=== PATIENT | male | born 1970 | race Caucasian/White ===

== ENCOUNTER → 2017-06-18 | Outpatient (CLI) | payer BC ==
--- NOTE | 2017-06-18 13:51 | CT ---
EXAMINATION TYPE: CT abdomen pelvis w con DATE OF EXAM: 06/18/2017 COMPARISON: NONE HISTORY: Mid Abdominal pain CT DLP: 1473 mGycm Automated exposure control for dose reduction was used. CONTRAST: CT scan of the abdomen pelvis is performed with IV Contrast, patient injected with 100 mL of Omnipaqu e 300. FINDINGS- LUNG BASES- No significant abnormality is appreciated. LIVER/EB-[id number] liver is compatible with fatty infiltration. No gallstones. PANCREAS- No gross abnormality is seen. SPLEEN- No gross abnormality is seen. ADRENALS- No gross abnormality is seen. KIDNEYS/BLADDER- no hydronephrosis or nephrolithiasis. Indeterminate renal lesion on the left measuri ng less than a centimeter. BOWEL- no bowel dilatation. Bowel gas pattern nonspecific. Diverticulosis of colon noted. No CT evid ence of diverticulitis. LYMPH NODES- No greater than 1cm abdominal or pelvic lymph nodes are appreciated. OSSEOUS STRUCTURES-hypertrophic change involving the L4 segment may been the basis of congenital defo rmity.. OTHER- hiatal hernia with peritoneal also noted . Prostate gland is enlarged. There are bilateral fa t-containing inguinal hernias. IMPRESSION- 1. Fatty infiltration of liver 2. Indeterminate left renal lesion too small to characterize. 3. There is a hiatal hernia which also contains peritoneal fat. 4. The prostate is enlarged.
== END | disposition home or self-care (01) ==
LOC: RADCTMAIN 11:12
PROVIDERS: ATTEND Family Medicine
DX: K76.0 Fatty (change of) liver, not elsewhere classified (principal); N40.0 Benign prostatic hyperplasia without lower urinary tract symptoms; N28.89 Other specified disorders of kidney and ureter; K44.9 Diaphragmatic hernia without obstruction or gangrene
CPT/HCPCS: 74177; Q9967

== ENCOUNTER 2017-06-23 10:49 | Day surgery (SDC) | payer BC, OTHER ==
[2017-06-18 16:15] VITALS: BMI 35.2
[~2017-06-23 10:49] MED LIST: LACTATED RINGERS 1,000 ML IV ONE; LIDOCAINE 1% 20 ML VIAL (10MG/ML) FOR IV START INTRADERMA PRN
[2017-06-23 11:16] VITALS: TEMP 97.5
[2017-06-23] MEDS ORDERED: PROPOFOL 10 MG/ML 20 ML VIAL IV ONE (13:18)
--- NOTE | 2017-06-23 13:20 | P.GSHP ---
History of Present Illness H&P Date: 06/23/17 Chief Complaint: GI bleed, history of diverticulitis This is a 47-year-old male referred from karen Mar. [facility]. He's had complaints of rectal bleeding. His had a previous colonoscopy approximately 3 years ago which sounds found have diverticulosis. Past Medical History Past Medical History: GERD/Reflux, Osteoarthritis (OA) History of Any Multi-Drug Resistant Organisms: None Reported Past Surgical History: Hernia Repair, Tonsillectomy Additional Past Surgical History / Comment(s): FATTY TUMOR REMOVED FROM CHEST AREA, COLONOSCOPY Past Anesthesia/Blood Transfusion Reactions: No Reported Reaction Smoking Status: Never smoker - Past Family History Mother Family Medical History: No Reported History Medications and Allergies Home Medications Medication Instructions Recorded Confirmed Type No Known Home Medications [No 06/18/17 06/23/17 History Known Home Medications] Allergies Allergy/AdvReac Type Severity Reaction Status Date / Time No Known Allergies Allergy Verified 06/23/17 11:36 Surgical - Exam Vital Signs Temp Pulse BP Pulse Ox 97.5 F L 66 133/91 96 06/23/17 11:15 06/23/17 11:15 06/23/17 11:15 06/23/17 11:15 - General well developed, no distress - Eyes PERRL - ENT normal pinna - Neck no masses - Respiratory normal expansion - Cardiovascular Rhythm: regular - Abdomen Abdomen: soft, non tender Assessment and Plan Assessment: GI Bleed. We'll perform colonoscopy.
--- NOTE | 2017-06-23 13:29 | P.OP ---
Date of Procedure: 06/23/17 Preoperative Diagnosis: GI bleed Postoperative Diagnosis: Diverticulosis Procedure(s) Performed: Colonoscopy Anesthesia: MAC Surgeon: Santiago Garcia Pathology: none sent Condition: stable Disposition: PACU Description of Procedure: Patient's placed on the endoscopy table in the lateral position. He received IV sedation. Digital rectal exam was performed which revealed no other abnormalities. Flexible colonoscope was then placed patient anus passed throughout the entire colon. The ileocecal valve was visualized. Cecum, ascending colon appeared normal. In the transverse descending; there is extensive diverticular changes. Scope was then brought back the rectum and this appeared normal. Scope was withdrawn for patient.
[2017-06-23 13:58] VITALS: BP 122/82; PULSE 79; RESP 18
== END 2017-06-23 14:08 | disposition home or self-care (01) ==
LOC: ORWHC2ENDO 10:49
PROVIDERS: ATTEND Surgery
DX: K57.30 Diverticulosis of large intestine without perforation or abscess without bleeding (principal); K21.9 Gastro-esophageal reflux disease without esophagitis
CPT/HCPCS: 45378; J2704

== ENCOUNTER 2017-07-19 06:51 | Day surgery (SDC) | payer BC ==
[2017-07-16 11:35] VITALS: BMI 36.2
[2017-07-19 07:05] VITALS: RESP 16; TEMP 97.6
[2017-07-19] MEDS ORDERED: IV FLUID CONTINUATION 1,000 ML IV ONE (07:11)
[2017-07-19] MEDS ORDERED: PROPOFOL 10 MG/ML 20 ML VIAL IV ONE (07:40)
[2017-07-19] MEDS ORDERED: LIDOCAINE 1% INJ 10MG/ML (20 ML MDV) ONE (07:40)
--- NOTE | 2017-07-19 07:54 | P.GSHP ---
History of Present Illness H&P Date: 07/19/17 Chief Complaint: GERD This a 47-year-old male referred from [facility] Mar PA-C. Patient presents today for EGD. He's had issues with GERD. He's had GERD for several years. Past Medical History Past Medical History: GERD/Reflux, Osteoarthritis (OA) Additional Past Medical History / Comment(s): hiatal hernia,occasional dysphagia , spot on kidney-having test Wednesday07-19-17 History of Any Multi-Drug Resistant Organisms: None Reported Past Surgical History: Hernia Repair, Tonsillectomy Additional Past Surgical History / Comment(s): FATTY TUMOR REMOVED FROM CHEST AREA, COLONOSCOPY Past Anesthesia/Blood Transfusion Reactions: No Reported Reaction Smoking Status: Never smoker - Past Family History Mother Family Medical History: No Reported History Medications and Allergies Home Medications Medication Instructions Recorded Confirmed Type Pantoprazole Sodium [Protonix] 40 mg PO DAILY 07/15/17 07/19/17 History Allergies Allergy/AdvReac Type Severity Reaction Status Date / Time No Known Allergies Allergy Verified 07/16/17 11:29 Surgical - Exam Vital Signs Temp Pulse Resp BP Pulse Ox 97.6 F 77 16 155/91 93 L 07/19/17 07:03 07/19/17 07:03 07/19/17 07:03 07/19/17 07:03 07/19/17 07:03 - General well developed, no distress - Eyes PERRL - ENT normal pinna - Neck no masses - Respiratory normal expansion - Cardiovascular Rhythm: regular - Abdomen Abdomen: soft, non tender Assessment and Plan Assessment: GERD. We'll perform EGD.
--- NOTE | 2017-07-19 07:58 | P.OP ---
Date of Procedure: 07/19/17 Preoperative Diagnosis: GERD Postoperative Diagnosis: Antral gastritis Hiatal hernia Esophagitis Procedure(s) Performed: EGD Anesthesia: MAC Surgeon: Santiago Garcia Pathology: other (Antrum, esophagus) Condition: stable Disposition: PACU Description of Procedure: The patient's placed on the endoscopy table in the lateral position. He received IV sedation. The gastroscope placed oropharynx passed in the esophagus into the stomach. Scope was then placed through the pylorus. The first and second portion duodenum appeared normal. Scope was then brought back the antrum and this was mildly inflamed. A biopsies performed. The scope was retroflexed and remainder of the stomach appeared normal. There was a moderate size hiatal hernia. The the hiatal hernia was sliding. The GE junction was at 38 cm. The distal esophagus was minimal inflamed. A biopsies performed. The proximal esophagus appeared normal.
[2017-07-19 08:24] VITALS: BP 118/78; PULSE 74
== END 2017-07-19 08:41 | disposition home or self-care (01) ==
LOC: ORWHC2ENDO 06:51
PROVIDERS: ATTEND Surgery
DX: K29.50 Unspecified chronic gastritis without bleeding (principal); K21.0 Gastro-esophageal reflux disease with esophagitis; K44.9 Diaphragmatic hernia without obstruction or gangrene; M19.90 Unspecified osteoarthritis, unspecified site; Z79.899 Other long term (current) drug therapy
CPT/HCPCS: 88305; 43239; J2001; J2704

== ENCOUNTER → 2017-07-19 | Outpatient (CLI) | payer BC ==
--- NOTE | 2017-07-20 06:52 | US ---
EXAMINATION TYPE: US kidneys/renal and bladder DATE OF EXAM: 07/19/2017 COMPARISON: CT abdomen and pelvis June 18, 2017 CLINICAL HISTORY: R93.5 RENAL LESION. Left kidney lesion seen on recent CT EXAM MEASUREMENTS: Right Kidney: 11.6 x 5.4 x 6.3 cm Left Kidney: 12.2 x 5.4 x 5.1 cm Right Kidney: 0.6 x 0.4cm echogenic nonshadowing focus inferior pole, limited by rib shadowing and ov erlying bowel gas Left Kidney: 0.8cm echogenic focus mid pole, lesion seen on recent CT not seen on today's exam, limit ed by rib shadowing and overlying bowel gas Bladder: wnl Bilateral Jets seen: yes There is no evidence for hydronephrosis at this point in time. Nonspecific hyperechoic nonshadowing f ocus lower pole level right kidney does not correspond to calculus seen on recent CT. No suspicious solid or cystic masses are identified on images saved. The urinary bladder is anechoic. Bilateral u reteral jets are seen. IMPRESSION: Subcentimeter exophytic low dense lesion on recent CT posteriorly mid pole level left kidney is not c learly identified on this study, because of size it is too small to further characterize but presumed benign.
== END | disposition home or self-care (01) ==
LOC: RADUSWWP 14:47
PROVIDERS: ATTEND Family Medicine
DX: N28.9 Disorder of kidney and ureter, unspecified (principal)
CPT/HCPCS: 76770

== ENCOUNTER 2017-07-27 06:54 | Day surgery (SDC) | payer BC ==
[2017-07-19 10:11] VITALS: BMI 36.2
[~2017-07-27 06:54] MED LIST changes: +DEXAMETHASONE SOD PHOSPHATE 10 MG/ML 1 ML VIAL IV ONE; +HEPARIN SODIUM,PORCINE 5,000 UNIT/ML 1 ML VIAL SQ ONE; +HYDROmorphone 0.5 MG/0.5 ML SYRINGE IVP PRN; -LACTATED RINGERS 1,000 ML IV ONE; -LIDOCAINE 1% 20 ML VIAL (10MG/ML) FOR IV START INTRADERMA PRN; +ONDANSETRON 4 MG/2 ML VIAL IVP ONE; +ceFAZolin IN SWFI 2 GM/20 ML SYRINGE IVP ONE
[2017-07-27] MEDS ORDERED: LIDOCAINE 1% 20 ML VIAL (10MG/ML) FOR IV START INTRADERMA ONE (07:24)
[2017-07-27] MEDS: LACTATED RINGERS 1,000 ML IV SCH ×2 (07:25→07:26)
--- NOTE | 2017-07-27 07:50 | P.GSHP ---
History of Present Illness H&P Date: 07/27/17 Chief Complaint: Bilateral inguinal hernia This is a 47-year-old male referred from that Isabela RICARDO. Patient rents today for laparoscopic robot-assisted repair of bilateral hernias. Patient developed pain in masses in bilateral groins. He seen in the office and found have bilateral inguinal hernias. Past Medical History Past Medical History: GERD/Reflux, Osteoarthritis (OA) Additional Past Medical History / Comment(s): hiatal hernia,occasional dysphagia , spot on kidney-having test Wednesday07-19-17 History of Any Multi-Drug Resistant Organisms: None Reported Past Surgical History: Hernia Repair, Tonsillectomy Additional Past Surgical History / Comment(s): FATTY TUMOR REMOVED FROM CHEST AREA, COLONOSCOPY Past Anesthesia/Blood Transfusion Reactions: No Reported Reaction Smoking Status: Never smoker - Past Family History Mother Family Medical History: No Reported History Medications and Allergies Home Medications Medication Instructions Recorded Confirmed Type Pantoprazole Sodium [Protonix] 40 mg PO DAILY 07/15/17 07/27/17 History Allergies Allergy/AdvReac Type Severity Reaction Status Date / Time No Known Allergies Allergy Verified 07/27/17 07:13 Surgical - Exam Vital Signs Temp Pulse Resp BP Pulse Ox 97.8 F 62 18 136/87 96 07/27/17 07:17 07/27/17 07:17 07/27/17 07:17 07/27/17 07:17 07/27/17 07:17 - General well developed, no distress - Eyes PERRL - ENT normal pinna - Neck no masses - Respiratory normal expansion - Cardiovascular Rhythm: regular - Abdomen Abdomen: soft, non tender Hernia: inguinal (Reducible bilateral inguinal hernia) Assessment and Plan Assessment: Bilateral inguinal hernia. We'll perform laparoscopic robotic-assisted repair.
[2017-07-27] MEDS ORDERED: KETAMINE 10 MG/ML 20 ML VIAL ONE (07:53)
[2017-07-27] MEDS ORDERED: MIDAZOLAM 2 MG/2 ML VIAL ONE (07:53)
[2017-07-27] MEDS ORDERED: LIDOCAINE 1% INJ 10MG/ML (20 ML MDV) ONE (07:53)
[2017-07-27] MEDS ORDERED: ePHEDrine SULFATE/0.9% NACL/PF 50 MG/5 ML SYRINGE IV ONE (07:53)
[2017-07-27] MEDS ORDERED: PROPOFOL 10 MG/ML 20 ML VIAL IV ONE (07:53)
[2017-07-27] MEDS ORDERED: KETOROLAC 30 MG/ML 1 ML VIAL ONE (07:53)
[2017-07-27] MEDS ORDERED: ROCURONIUM BROMIDE 10 MG/ML 10 ML VIAL IV ONE (07:53)
[2017-07-27] MEDS ORDERED: GLYCOPYRROLATE 0.2 MG/ML 2 ML VIAL ONE (07:53)
[2017-07-27] MEDS ORDERED: NEOSTIGMINE 1 MG/ML 10 ML VIAL ONE (07:53)
[2017-07-27] MEDS ORDERED: SUCCINYLCHOLINE CHLORIDE VIAL 200 MG/10 ML VIAL IV ONE (07:53)
[2017-07-27] MEDS ORDERED: fentaNYL (PF) 50 MCG/ML 2 ML AMP ONE (07:53)
[2017-07-27] MEDS ORDERED: BUPIVACAINE (PF) 0.25% 30 ML VIAL SQ ONE (07:57)
[2017-07-27] MEDS ORDERED: ceFAZolin IN SWFI 2 GM/20 ML SYRINGE IVP ONE (08:06)
[2017-07-27 09:27] VITALS: TEMP 97.1
[2017-07-27] MEDS ORDERED: HYDROcodone/APAP 7.5-325MG 1 EACH TAB PO ONE (10:39)
--- NOTE | 2017-07-27 10:55 | P.OP ---
Date of Procedure: 07/27/17 Preoperative Diagnosis: Bilateral inguinal hernia Postoperative Diagnosis: Bilateral inguinal hernia Procedure(s) Performed: Laparoscopic robotic-assisted repair of bilateral inguinal hernia Laparoscopic excision of bilateral cord lipoma Anesthesia: KAE Surgeon: Santiago Garcia Estimated Blood Loss (ml): 5 Pathology: other (Bilateral cord lipoma) Condition: stable Disposition: PACU Description of Procedure: The patient was placed on the operating table in the supine position. The patient received general anesthesia. The patient's abdomen was prepped and draped in usual sterile fashion. The skin was anesthetized 1% local Xylocaine at the incision sites. Using an 11 blade a skin incision was made at the umbilicus. The fascia was grasped with a [place] and then the peritoneal cavity was entered with the Veress needle. Position of the Veress needle was confirmed with a positive drop test. After adequate insufflation a 5 mm trocar was placed into the peritoneal cavity. The Laparoscope was placed the peritoneal cavity. And a robotic 8 mm trocar was placed in the right lateral position and then another 8 mm robotic trochars placed in the left lateral position. The original 5 mm trocar was exchanged for a 12 mm trocar. The patient was placed in reverse Trendelenburg and then the patient was docked to the robot. Next the peritoneum over top of the hernia was incised and then using blunt and sharp dissection and electrocautery the hernia sac was dissected free from the floor of the inguinal canal. A cord lipoma was dissected from the right inguinal cord. The hernia sac was completely reduced into the peritoneal cavity. And then using the Pro annual giving director mesh the hernia was repaired. The peritoneum was then sutured with 2-0V lock suture. Next, the left inguinal hernia was repaired in identical fashion. A cord lipoma was also dissected from the cord. The patient was then undocked the robot. The needle was withdrawn from the peritoneal cavity. The umbilical trocar site was closed with 0 Ethibond suture. The skin was closed interrupted 3-0 Monocryl suture. Dermabond dressing was applied. Patient was sent to recovery in stable condition.
[2017-07-27 11:24] VITALS: BP 138/73; PULSE 58; RESP 18
== END 2017-07-27 11:47 | disposition home or self-care (01) ==
LOC: OR 06:54
PROVIDERS: ATTEND Surgery
DX: K40.20 Bilateral inguinal hernia, without obstruction or gangrene, not specified as recurrent (principal); D17.6 Benign lipomatous neoplasm of spermatic cord; K21.9 Gastro-esophageal reflux disease without esophagitis; E66.9 Obesity, unspecified; Z68.36 Body mass index [BMI] 36.0-36.9, adult; M19.90 Unspecified osteoarthritis, unspecified site; K44.9 Diaphragmatic hernia without obstruction or gangrene; Z79.899 Other long term (current) drug therapy; N28.9 Disorder of kidney and ureter, unspecified
CPT/HCPCS: 49650; S2900; 88304

== ENCOUNTER 2017-08-25 08:30 | Inpatient (IN) | payer BC ==
[2017-08-20 14:33] VITALS: BMI 35.2
[~2017-08-25 08:30] MED LIST changes: -DEXAMETHASONE SOD PHOSPHATE 10 MG/ML 1 ML VIAL IV ONE; -ONDANSETRON 4 MG/2 ML VIAL IVP ONE; +ONDANSETRON 4 MG/2 ML VIAL IVP PRN
[2017-08-25] MEDS ORDERED: LIDOCAINE 1% 20 ML VIAL (10MG/ML) FOR IV START INTRADERMA ONE (13:10)
[2017-08-25] MEDS ORDERED: LACTATED RINGERS 1,000 ML IV ONE ×2 (13:10→18:45)
[2017-08-25] MEDS ORDERED: DEXAMETHASONE SOD PHOS (MDV) 100 MG/10 ML VIAL IVP ONE (13:27)
--- NOTE | 2017-08-25 16:11 | P.GSHP ---
History of Present Illness H&P Date: 08/25/17 Chief Complaint: GERD This a 47-year-old male referred from Dr. Karyna Mendoza. MThe patient has had long-standing problems with reflux esophagitis. The patient underwent recent EGD is found have evidence of esophagitis. Patient has been well informed on the procedure of laparoscopic Mary Ann fundoplication. The patient is aware the risk of the conversion to the open procedure, risk of injury to the stomach, liver and spleen. The patient is also a risk of recurrent GERD and dysphagia symptoms. The patient understands there is a postoperative diet of full liquids for 2 weeks after surgery. Past Medical History Past Medical History: GERD/Reflux, Osteoarthritis (OA) Additional Past Medical History / Comment(s): hiatal hernia,occasional dysphagia History of Any Multi-Drug Resistant Organisms: None Reported Past Surgical History: Hernia Repair, Tonsillectomy Additional Past Surgical History / Comment(s): FATTY TUMOR REMOVED FROM CHEST AREA, COLONOSCOPY, laparoscopic lisa. inguinal hernia repair 2017 Past Anesthesia/Blood Transfusion Reactions: No Reported Reaction Smoking Status: Never smoker - Past Family History Mother Family Medical History: No Reported History Medications and Allergies Home Medications Medication Instructions Recorded Confirmed Type Pantoprazole Sodium [Protonix] 40 mg PO DAILY 07/15/17 08/20/17 History Calcium Carb/Vitamin D3/Vit K1 1 each PO DAILY 08/20/17 08/20/17 History [Citracal Soft Chew] Calcium Polycarbophil [Fibercon] 625 mg PO DAILY 08/20/17 08/20/17 History Allergies Allergy/AdvReac Type Severity Reaction Status Date / Time No Known Allergies Allergy Verified 08/20/17 12:27 Surgical - Exam Vital Signs Temp Pulse Resp BP Pulse Ox 97.8 F 80 18 141/84 95 08/25/17 13:08 08/25/17 13:08 08/25/17 13:08 08/25/17 13:08 08/25/17 13:08 - General well developed, no distress - Eyes PERRL - ENT normal pinna - Neck no masses - Respiratory normal expansion - Cardiovascular Rhythm: regular - Abdomen Abdomen: soft, non tender Assessment and Plan Assessment: GERD. We'll perform laparoscopic Mary Ann fundal plication.
[2017-08-25] MEDS ORDERED: PROPOFOL 10 MG/ML 20 ML VIAL IV ONE (16:34)
[2017-08-25] MEDS ORDERED: LIDOCAINE 1% INJ 10MG/ML (20 ML MDV) ONE (16:34)
[2017-08-25] MEDS ORDERED: fentaNYL (PF) 50 MCG/ML 2 ML AMP ONE (16:34)
[2017-08-25] MEDS ORDERED: SUCCINYLCHOLINE CHLORIDE 100 MG/5 ML SYR IV ONE (16:34)
[2017-08-25] MEDS ORDERED: PHENYLEPHRINE-0.9% NACL SYG 1 MG/10 ML SYRINGE ONE (16:34)
[2017-08-25] MEDS ORDERED: ROCURONIUM BROMIDE 10 MG/ML 10 ML VIAL IV ONE (16:34)
[2017-08-25] MEDS ORDERED: MIDAZOLAM 2 MG/2 ML VIAL ONE (16:34)
[2017-08-25] MEDS ORDERED: GLYCOPYRROLATE 0.2 MG/ML 2 ML VIAL ONE (16:34)
[2017-08-25] MEDS ORDERED: NEOSTIGMINE 1 MG/ML 10 ML VIAL ONE (16:34)
[2017-08-25] MEDS ORDERED: BUPIVACAINE (PF) 0.5% 30 ML VIAL SQ ONE ×2 (17:00)
[2017-08-25] MEDS ORDERED: MORPHINE SULFATE/PF 10MG/10ML VL IVP PRN (17:36)
[2017-08-25] MEDS ORDERED: ONDANSETRON 4 MG/2 ML VIAL IVP PRN (17:36)
--- NOTE | 2017-08-25 17:36 | P.OP ---
Date of Procedure: 08/25/17 Preoperative Diagnosis: GERD Postoperative Diagnosis: Gastroesophageal reflux disease Large hiatal hernia Procedure(s) Performed: Laparoscopic Mary Ann fundoplication with mesh repair of hiatal hernia Anesthesia: KAE Surgeon: Santiago Garcia Estimated Blood Loss (ml): 5 Pathology: none sent Condition: stable Disposition: PACU Description of Procedure: The patient was placed on the operating table in the supine position. She received general anesthesia. She was then placed in dorsal lithotomy position. Her abdomen was prepped and draped in the usual sterile fashion. The skin incision sites were anesthetized with 1% local Xylocaine. The skin was incised in the left periumbilical area with an 11 scalpel. Using a 5 mm blade was trocar under direct visitation the peritoneal cavity was entered. And then insufflated. After adequate insufflation the laparoscope was placed back into the peritoneal cavity. Next a 5 mm trocar was placed in the right epigastric and then the right lateral position. Another 5 mm trochars placed in the left lateral position. Another 5 mm trocar placed in the left epigastric position. And the original left periumbilical trocar was exchanged for a 10 mm trocar. The left lateral lobe liver was retracted. The patient had a large hiatal hernia. Using the Harmonic scissors the crural defect was dissected in the Harmonic scissors were used to dissect the hiatal hernia sac. The fundus of the stomach was completely mobilized by using the Harmonic scissors to divide short gastric vessels. The stomach was reduced into the peritoneal cavity. The crura was dissected with the Harmonic scissors. And then the crural repair was performed using 2-0 Ethibond suture. The Somis bio A mesh was then placed over top of the repair and secured with 2-0 Ethibond suture. Next a 58-Bulgarian bougie dilator was placed the patient's oral pharynx and into the esophagus into the stomach by the E LEARNING COORDINATOR. The fundoplication was then performed using 2-0 Ethibond suture. A 360 fundoplication was performed. At this point the dilator was withdrawn. The stomach and esophagus were inspected there is known to any injury to the stomach or esophagus. The abdomen was irrigated there is no bleeding seen. The trochars are withdrawn. Skin was closed interrupted 3-0 Monocryl suture. Dermabond was applied. Patient tolerated procedure well and was sent to recovery in stable condition.
[2017-08-25] MEDS ORDERED: KETOROLAC 30 MG/ML 1 ML VIAL IVP ONE (18:30)
[2017-08-25] MEDS ORDERED: fentaNYL (PF) 50 MCG/ML 2 ML AMP IVP ONE (18:45)
[2017-08-26] MEDS: D5-0.45% NACL WITH KCL 20MEQ/L 1,000 ML IV SCH ×2 (01:27→05:34)
[2017-08-26] MEDS: LACTATED RINGERS 1,000 ML IV SCH ×3 (01:32→10:45)
[2017-08-26 07:13] VITALS: BP 117/72; PULSE 83; RESP 14; TEMP 98.3
--- NOTE | 2017-08-26 08:37 | FL ---
EXAMINATION TYPE: FL esophagus cervic/pharynx DATE OF EXAM: 08/26/2017 HISTORY: Post Mary Ann fundoplication COMPARISON: NONE TECHNIQUE: A single contrast esophagram is performed utilizing thin barium. 14 images were saved. 1 minute and 7 seconds of fluoroscopy time was utilized. FINDINGS: The esophagus shows normal motility and mild delay at the gastroesophageal junction while emptying in to the stomach. No evidence of hiatal hernia or stricture noted. No significant gastroesophageal ref lux was seen during real time performance of this study. No evidence of leak was seen. IMPRESSION: Mild delay at the gastroesophageal junction, likely from postoperative edema. No signifi cant obstruction or evidence of leak..
[2017-08-26] MEDS ORDERED: ENOXAPARIN 40 MG/0.4 ML SYRINGE SQ SCH (09:00)
--- NOTE | 2017-08-26 11:09 | P.CONS ---
History of Present Illness - Reason for Consult Consult date: 08/26/17 Medical management Requesting physician: Santiago Garcia - Chief Complaint Status post Mary Ann fundal plication - History of Present Illness This is a 47-year-old male, patient of Dr. Dia. He has a known past medical history of GERD, hiatal hernia and osteoarthritis. Patient is postop day #1 status post Mary Ann complication with mesh repair of hiatal hernia with Dr. Garcia. Patient tolerated surgery well. No complications. We've been consulted for medical management. Patient underwent esophagram does reveal mild delay at the gastroesophageal junction, likely from postoperative edema. No significant obstruction or evidence of leak. Patient reports that he is tolerating a clear liquid diet. Denies any nausea or vomiting. Denies any chest pain shortness of breath. Reports that he has not had a bowel movement or passed gas. Denies any burning with urination. He has been up and ambulating in the loya without difficulty. Review of Systems Please refer to HPI otherwise unremarkable Past Medical History Past Medical History: GERD/Reflux, Osteoarthritis (OA) Additional Past Medical History / Comment(s): hiatal hernia,occasional dysphagia History of Any Multi-Drug Resistant Organisms: None Reported Past Surgical History: Hernia Repair, Tonsillectomy Additional Past Surgical History / Comment(s): FATTY TUMOR REMOVED FROM CHEST AREA, COLONOSCOPY, laparoscopic lisa. inguinal hernia repair 2017 Past Anesthesia/Blood Transfusion Reactions: No Reported Reaction Past Psychological History: No Psychological Hx Reported Smoking Status: Never smoker Past Alcohol Use History: Occasional Past Drug Use History: None Reported - Past Family History Mother Family Medical History: No Reported History Medications and Allergies Home Medications Medication Instructions Recorded Confirmed Type Pantoprazole Sodium [Protonix] 40 mg PO DAILY 07/15/17 08/25/17 History Calcium Carb/Vitamin D3/Vit K1 1 tab PO DAILY 08/20/17 08/25/17 History [Citracal Soft Chew] Calcium Polycarbophil [Fibercon] 625 mg PO DAILY 08/20/17 08/25/17 History Allergies Allergy/AdvReac Type Severity Reaction Status Date / Time No Known Allergies Allergy Verified 08/25/17 19:04 Physical Exam Vitals: Vital Signs Temp Pulse Resp BP Pulse Ox 08/26/17 07:37 14 08/26/17 07:12 98.3 F 83 14 117/72 95 08/26/17 01:08 98.7 F 86 16 131/81 92 L 08/25/17 22:31 65 133/85 08/25/17 21:50 73 126/81 08/25/17 21:35 67 129/81 08/25/17 21:05 79 133/86 08/25/17 20:50 73 126/82 08/25/17 20:35 62 132/88 08/25/17 20:20 56 L 132/84 08/25/17 20:05 61 127/81 08/25/17 19:50 97.7 F 59 L 16 123/82 96 08/25/17 19:44 97.7 F 59 L 16 123/82 96 08/25/17 19:00 56 L 16 122/70 94 L 08/25/17 18:45 60 16 121/63 94 L 08/25/17 18:29 60 16 121/69 93 L 08/25/17 18:14 58 L 16 130/73 95 08/25/17 17:59 97.6 F 72 16 145/69 95 08/25/17 13:08 97.8 F 80 18 141/84 95 Intake and Output 08/25/17 08/26/17 08/26/17 22:59 06:59 14:59 Intake Total 800 1000 Output Total 210 Balance 590 1000 Intake: IV 800 Intake, IV Titration 1000 Amount D5-0.45% NaCl with KCl 1000 20Meq/l 1,000 ml @ 125 mls/hr IV .Q8H ZHANNA Rx#: [id number] Output: Urine 200 Estimated Blood Loss 10 Other: # Voids 1 Weight 117.934 kg Head normocephalic Neck supple Lungs clear to auscultation bilaterally no wheezing or crackles Heart regular rate and rhythm S1-S2, no rub or gallop Abdomen is soft nontender nondistended. Hypoactive bowel sounds. Incision sites mild dried blood. No evidence of infection. Mild tenderness with palpation at incision sites Extremities no edema Neuro alert and orientated to 3 Assessment and Plan Assessment: 1. GERD with hiatal hernia status post Mary Ann complication with mesh repair of hiatal hernia. Esophagram shows no evidence of obstruction or leak. Tolerating clear liquid diet. Surgical service is planning discharged afternoon 2. History of osteoarthritis: Stable Thank you for this consultation. We'll check routine labs CBC and BMP. Anticipate discharge later this afternoon. Time with Patient: Greater than 30 (Greater than 50% of the total time spent in counseling and coordination of care.I performed an examination of the patient and discussed their management with the physician Architect In Training. I have reviewed the Physician Architect In Training's notes and agree with the documented findings and plan of care)
[2017-08-26 11:29] LABS: Basophils % (A) 0 %; Eosinophils # (A) 0.1 k/uL (0-0.7); Eosinophils % (A) 1 %; HCT 39.1 % (39.0-53.0); HGB 13.5 gm/dL (13.0-17.5); Lymphocytes # (A) 1.1 k/uL (1.0-4.8); Lymphocytes % (A) 10 %; MCH 29.3 pg (25.0-35.0); MCHC 34.7 g/dL (31.0-37.0); MCV 84.4 fL (80.0-100.0); Mean Platelet Volume 6.7; Monocytes % (A) 9 %; Neutrophils # (A) 8.5 k/uL (1.3-7.7); Neutrophils % (A) 79 %; Platelet Count 260 k/uL (150-450); RBC 4.63 m/uL (4.30-5.90); RDW 13.3 % (11.5-15.5); WBC 10.8 k/uL (3.8-10.6)
[2017-08-26 11:46] LABS: Anion Gap 10 mmol/L; Blood Urea Nitrogen 20 mg/dL (9-20); Carbon Dioxide 27 mmol/L (22-30); Chloride 104 mmol/L (98-107); Glucose 109 mg/dL (74-99); Potassium 4.2 mmol/L (3.5-5.1); Sodium 141 mmol/L (137-145)
--- NOTE | 2017-08-26 11:46 | P.DS ---
Providers Date of admission: 08/25/17 12:23 Expected date of discharge: 08/26/17 Attending physician: Santiago Garcia Consults: 08/25/17 17:36 Consult Physician Routine Consulting Provider: Tutu Gillis Consult Reason/Comments: Shailesh management Do you want consulting provider notified?: Yes Primary care physician: [facility] Course: 47-year-old male who has a past medical history of symptomatic esophageal reflux disease. underwent elective Mary Ann fundoplication with mesh and repair of a hiatal hernia on August 25. There were no postop events. patient's. Patient's postop esophagram showed no evidence of a leak or obstruction. Patient was tolerating a clear liquid diet there was no nausea no vomiting. Patient was felt to be appropriate to be discharged home patient was up ambulatory on the unit passing gas urinating no difficulty Impression discharge diagnoses Status post hiatal hernia repair mary ann fundoplication with mesh for symptomatic esophageal reflux symptoms A recent EGD showing evidence of esophagitis long-standing issues with reflux esophagitis symptomatic The above impression and plan of care have been discussed and directed by signing physician. Edda Montenegro nurse practitioner acting as scribe for signing physician. Plan - Discharge Summary Discharge Rx Participant: Yes New Discharge Prescriptions: Continue Calcium Polycarbophil [Fibercon] 625 mg PO DAILY Calcium Carb/Vitamin D3/Vit K1 [Citracal Soft Chew] 1 tab PO DAILY Discontinued Pantoprazole Sodium [Protonix] 40 mg PO DAILY Discharge Medication List Calcium Carb/Vitamin D3/Vit K1 [Citracal Soft Chew] 1 tab PO DAILY 08/20/17 [ History] Calcium Polycarbophil [Fibercon] 625 mg PO DAILY 08/20/17 [History] Follow up Appointment(s)/Referral(s): Santiago Garcia MD [STAFF PHYSICIAN] - 1 Week Activity/Diet/Wound Care/Special Instructions: No tub bath for six weeks. Shower daily. No lifting over 10 pounds for the next 6 weeks. 2 weeks post procedure for liquids May use ice packs to surgical site. Discharge Disposition: HOME SELF-CARE
== END 2017-08-26 13:04 | disposition home or self-care (01) | DRG 328 ==
LOC: 2ORWHC 12:23 → 3SUR 18:24
PROVIDERS: ADMIT Surgery; ATTEND Surgery
PROC: 0BUT4JZ Supplement Diaphragm with Synthetic Substitute, Percutaneous Endoscopic Approach (ICD-10-PCS; principal; 2017-08-25 14:00)
PROC: 0DV44ZZ Restriction of Esophagogastric Junction, Percutaneous Endoscopic Approach (ICD-10-PCS; principal; 2017-08-25 14:00)
DX: K21.0 Gastro-esophageal reflux disease with esophagitis (principal); K44.9 Diaphragmatic hernia without obstruction or gangrene; M19.90 Unspecified osteoarthritis, unspecified site; Z79.899 Other long term (current) drug therapy
CPT/HCPCS: 74210; 80048; 85025